=== PATIENT | male | born 1980 ===

== ENCOUNTER 2021-06-03 11:07 | Emergency (ER) | payer SELFPAY ==
[2021-06-03] MEDS ORDERED: KETOROLAC 60 MG/2 ML INJ IM ONE (11:26)
[2021-06-03] MEDS ORDERED: CYCLOBENZAPRINE 10 MG TAB PO ONE (11:26)
[2021-06-03 11:56] VITALS: BP 126/77
--- NOTE | 2021-06-03 12:23 | XRay Report ---
LEFT KNEE 3 VIEW(S) INDICATION / CLINICAL INFORMATION: left knee pain COMPARISON: None available. FINDINGS: BONES / JOINT(S): No acute fracture or subluxation. No significant arthritis. SOFT TISSUES: No significant abnormality. ADDITIONAL FINDINGS: None. Signer Name: Tom Ventura DO Signed: 06/03/2021 12:18 PM Workstation Name: [id number]
--- NOTE | 2021-06-03 12:35 | Emergency Department Report ---
ED Extremity Problem HPI - General Chief complaint: Extremity Problem,Nontraumatic Stated complaint: KNEE/HIP PAIN Time Seen by Provider: 06/03/21 11:18 Source: patient Mode of arrival: Wheelchair Limitations: No Limitations - History of Present Illness Initial comments: Patient is a 41-year-old male presents emergency room with complaints of left knee pain that radiates to his left hip that began yesterday. Patient states that he just started a new job and he has not worked in approximately 1 year. 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 He denies any fall or injury. He denies any leg swelling, calf pain, numbness. He states he has pain with ambulation. Has medical history of HIV and reports he is undetectable. No allergies to medications. Severity scale (0 -10): 0 - Related Data Previous Rx's Medication Instructions Recorded Last Taken Type Menthol/Camphor [[place] 1 applicatio TP BID #18 oint...g. 06/03/21 Unknown Rx Ointment] Naproxen 500 mg PO BID PRN #14 tablet 06/03/21 Unknown Rx Allergies Allergy/AdvReac Type Severity Reaction Status Date / Time No Known Allergies Allergy Verified 06/03/21 11:56 ED Review of Systems ROS: Stated complaint: KNEE/HIP PAIN Other details as noted in HPI Comment: All other systems reviewed and negative ED Past Medical Hx - Social History Smoking Status: Never Smoker Substance Use Type: None - Medications Home Medications: Home Medications Medication Instructions Recorded Confirmed Last Taken Type Menthol/Camphor [[place] 1 applicatio TP BID #18 oint...g. 06/03/21 Unknown Rx Ointment] Naproxen 500 mg PO BID PRN #14 tablet 06/03/21 Unknown Rx ED Physical Exam - General Limitations: No Limitations General appearance: alert, in no apparent distress - Head Head exam: Present: atraumatic, normocephalic - Eye Eye exam: Present: normal appearance - ENT ENT exam: Present: mucous membranes moist - Extremities Exam Extremities exam: Present: other (ttp to the left lateral knee, pain radiates to the left lateral leg up to the hip, no calf ttp, no edema, FROM, no skin changes, neurovascularly intact) - Neurological Exam Neurological exam: Present: alert, oriented X3 - Psychiatric Psychiatric exam: Present: normal affect, normal mood - Skin Skin exam: Present: warm, dry, intact ED Course Vital Signs 06/03/21 06/03/21 11:15 11:53 Temperature 98.3 F 97.7 F Pulse Rate 68 81 Respiratory 18 16 Rate Blood Pressure 126/77 Blood Pressure 137/73 [Right] O2 Sat by Pulse 100 99 Oximetry ED Medical Decision Making - Radiology Data Radiology results: report reviewed Ordering Physician: CAL ZAVALETA Date of Service: 06/03/21 Procedure(s): XR knee 3V LT Accession Number(s): [id number] cc: CAL ZAVALETA Fluoro Time In Minutes: LEFT KNEE 3 VIEW(S) INDICATION / CLINICAL INFORMATION: left knee pain COMPARISON: None available. FINDINGS: BONES / JOINT(S): No acute fracture or subluxation. No significant arthritis. SOFT TISSUES: No significant abnormality. ADDITIONAL FINDINGS: None. Signer Name: Tom Ventura DO Signed: 06/03/2021 12:18 PM Workstation Name: [id number] Transcribed By: JUNG Dictated By: TOM VENTURA DO Electronically Authenticated By: TOM VENTURA DO Signed Date/Time: 06/03/211217 DD/ 17 TD/TT: - Medical Decision Making Patient is a 41-year-old male presents emergency room with complaints of left knee pain that radiates to his left hip that began yesterday. Patient states that he just started a new job and he has not worked in approximately 1 year. 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 He denies any fall or injury. He denies any leg swelling, calf pain, numbness. He states he has pain with ambulation. Has medical history of HIV and reports he is undetectable. No allergies to medications. Vitals are stable. On exam:ttp to the left lateral knee, pain radiates to the left lateral leg up to the hip, no calf ttp, no edema, FROM, no skin changes, neurovascularly intact. No clinical signs of DVT. No clinical signs of cellulitis, infection, s eptic joint. X-ray left knee BONES / JOINT(S): No acute fracture or subluxation. No significant arthritis. SOFT TISSUES: No significant abnormality. ADDITIONAL FINDINGS: None. Symptoms and examination appear likely consistent with IT band syndrome. Patient given prescription for medication. Lukasz wrap placed by coatings inspector and patient remained neurovascularly intact. Patient will be referred to orthopedic doctor. Advised patient Please use medication as prescribed as needed. May use ice pack, heating pad, rest, epsom salt bath. Do not use heat or ice while using tiger balm. Follow-up with a orthopedic doctor. Return to emergency room for any new or worsening symptoms. Critical care attestation.: If time is entered above; I have spent that time in minutes in the direct care of this critically ill patient, excluding procedure time. ED Disposition Clinical Impression: Left knee pain Qualifiers: Chronicity: acute Qualified Code(s): M25.562 - Pain in left knee Disposition: HOME / SELF CARE / HOMELESS Is pt being admited?: No Does the pt Need Aspirin: No Condition: Stable Instructions: Elastic Bandage and RICE Therapy, Iliotibial Band Syndrome Additional Instructions: Please use medication as prescribed as needed. May use ice pack, heating pad, rest, epsom salt bath. Do not use heat or ice while using tiger balm. Follow- up with a orthopedic doctor. Return to emergency room for any new or worsening symptoms. Prescriptions: Naproxen 500 mg PO BID PRN #14 tablet PRN Reason: pain Menthol/Camphor [[place] Ointment] 1 applicatio TP BID #18 oint...g. Referrals: PRIMARY CAREMD [Primary Care Provider] - 2-3 Days GUEVARA GONZALEZ MD [Staff Physician] - 3-5 Days [facility] [[facility]] - 3-5 Days Forms: Work/School Release Form(ED) Time of Disposition: 12:33 Print Language: SLOV[place]
== END 2021-06-03 12:54 | disposition home or self-care (01) ==
LOC: ED 11:07
DX: M25.562 Pain in left knee (principal)
CPT/HCPCS: 73562; 96372; 99283; J1885